=== PATIENT | male | born 1955 | race Caucasian/White ===

== ENCOUNTER 2023-06-27 08:05 | Day surgery (SDC) | payer MEDICARE ==
[~2023-06-27] VITALS: Ht 165.1 cm; Wt 72.7 kg
[~2023-06-27 08:05] MED LIST: AMLO-257 PO; ATOR40TA28 PO; CLON0.1T2 PO; HYDR-4808 PO; INSU100I3 SQ; LEVO125T95 PO; LOSA-381 PO; PANT-31 PO; SODIUM CHLORIDE 0.9% 0 ML ONE; TAMS0.4C34 PO
[2023-06-27] MEDS ORDERED: LIDOCAINE/PF 2% 5 ML VIAL IM ONE (08:06)
[2023-06-27] MEDS ORDERED: PROPOFOL 1% 20 ML VIAL IVP ONE (08:06)
[2023-06-27] MEDS ORDERED: DOCU100C33 PO (08:26)
[2023-06-27] MEDS ORDERED: SODIUM CHLORIDE 0.9% 1,000 ML ONE (09:15)
[2023-06-27 09:21] LABS: GLUCOMETER DEV NAME(LOC) SDS.; GLUCOSE,POINT OF CARE 76 MG/DL (70-110)
[2023-06-27] MEDS ORDERED: SODIUM CHLORIDE 0.9% 1,000 ML IV ONE (09:45)
[2023-06-27] MEDS ORDERED: OXYGEN THERAPY IH SCH (11:15)
[2023-07-17] MEDS ORDERED: SODIUM CHLORIDE 0.9% 1,000 ML IV ONE (07:00)
== END 2023-06-27 12:45 | disposition home or self-care (01) ==
LOC: SURGERY 08:05
PROVIDERS: ATTEND Specialist
DX: K63.5 Polyp of colon (principal); K59.04 Chronic idiopathic constipation; K29.70 Gastritis, unspecified, without bleeding; I10 Essential (primary) hypertension; E03.9 Hypothyroidism, unspecified; E11.9 Type 2 diabetes mellitus without complications; K21.9 Gastro-esophageal reflux disease without esophagitis; Z79.899 Other long term (current) drug therapy; Z98.890 Other specified postprocedural states
CPT/HCPCS: 45385; 43239; 82962; C1769; J2704; J3490; J7030